=== PATIENT | female | born 1935 | race Caucasian/White ===

== ENCOUNTER → 2022-10-14 | Outpatient (CLI) | payer OTHER ==
[~2022-10-14] MED LIST: AMLO5 PO; ASPI325EC; ATOR10; DOCU100; EXEM25; FURO40; LOSHYD100 PO; METO5; Mobic15 MG PO; Norco 5-325 Ta1 EACH PO; PINDOLOL; PIRO10; POTCHL10ER
== END | disposition home or self-care (01) ==
LOC: LAB SHORT 11:50
DX: N18.30 Chronic kidney disease, stage 3 unspecified (principal); R44.1 Visual hallucinations
CPT/HCPCS: 87077; 87086; 87186

== ENCOUNTER 2023-04-09 06:23 | Observation (INO) | payer OTHER ==
[~2023-04-09] VITALS: Ht 149.9 cm; Wt 80.7 kg
[2023-04-09] VITALS (10 sets, daily range): BP systolic 131–153; BP diastolic 62–132
[~2023-04-09 06:23] MED LIST changes: +LOSA50 PO; -LOSHYD100 PO
[2023-04-09 07:19] LABS: Albumin, Blood 3.2 g/dL (3.4-5.0); Albumin/Globulin Ratio 0.9 (0.8-1.8); Bun/Creatinine Ratio 14.8 (12.0-20.0); Calcium, Blood 9.6 mg/dL (8.5-10.1); Creatinine, Blood 0.88 mg/dL (0.40-1.00); Globulin, Blood 3.6 g/dL (2.2-4.0); Magnesium, Blood 1.5 mg/dL (1.6-2.4); Potassium, Blood 4.3 mmol/L (3.5-5.5); Total Protein, Blood 6.8 g/dL (6.4-8.2)
[2023-04-09 07:20] LABS: BASOPHILS ABSOLUTE AUTO 0.05 K/mm3 (0.00-0.23); BASOPHILS PERCENT AUTO 1 % (0-2); EOSINOPHILS ABSOLUTE AUTO 0.16 K/mm3 (0.00-0.68); EOSINOPHILS PERCENT AUTO 4 % (0-6); Hematocrit 40.5 % (33.0-51.0); Hemoglobin 13.3 g/dL (11.5-16.0); IMMATURE GRAN ABSOLUTE AUTO 0.01 K/mm3 (0.00-0.10); IMMATURE GRAN PERCENT AUTO 0 % (0-1); LYMPHOCYTES ABSOLUTE AUTO 0.94 K/mm3 (0.84-5.20); LYMPHOCYTES PERCENT AUTO 24 % (21-46); MONOCYTES ABSOLUTE AUTO 0.46 K/mm3 (0.16-1.47); MONOCYTES PERCENT AUTO 12 % (4-13); Mean Corpuscular HGB 30.6 pg (26.0-34.0); Mean Corpuscular HGB Conc 32.8 g/dL (31.5-36.5); Mean Corpuscular Volume 93 fL (80-100); NEUTROPHILS ABSOLUTE AUTO 2.25 K/mm3 (1.96-9.15); NEUTROPHILS PERCENT AUTO 58 % (41-73); Platelet Count 248 K/mm3 (150-400); RDW Coefficient Variation 14.7 % (11.7-14.2); RDW Standard Deviation 51.4 fL (35.1-46.3); Red Blood Cell Count 4.34 M/mm3 (3.80-5.20); White Blood Cell Count 3.87 K/mm3 (4.00-11.30)
[2023-04-09 09:16] LABS: Influenza A, PCR NEGATIVE (NEGATIVE); Influenza B, PCR NEGATIVE (NEGATIVE); Resp Syncytial Virus, PCR NEGATIVE (NEGATIVE); SARS-Cov-2 (COVID-19) PCR, MMC NEGATIVE (NEGATIVE)
[2023-04-09] MEDS ORDERED: VITAMIN D5000 UNIT PO (11:41)
--- NOTE | 2023-04-09 17:25 | NUR ---
ADMIT NOTE/SHIFT SUMMARY PT ARRIVED TO PCU FROM ED VIA ED STRETCHER. PT VERBALIZED NEED TO USE RESTROOM UPON ARRIVING TO ROOM. PT ASSISTED TO BATHROOM BY 2 STAFF. PT C/O OF SOB. UNABLE TO VOID. PT AMBULATED TO BED W/ 2 STAFF ASSIST, FWW AND GB. PT A&O X4. SP02>90% ON RA. SOB W/ EXERTION BUT DOES NOT DESAT. TELEMETRY SHOWS AFIB, HR MOSTLY 100'S AT REST, 120'S W/ EXERTION. DENIES CP. NO BP ON R ARM D/T MASECTOMY. DENIES PAIN. AMBULATED TO BSC TO VOID, CALLS APPROPRIATELY. DAUGHTER CALLED FOR UPDATE. PT ORIENTED TO ROOM, CALL LIGHT. CALL LIGHT IN REACH.
[2023-04-10 03:05] VITALS: BP 140/114
[2023-04-10 03:30] LABS: BASOPHILS ABSOLUTE AUTO 0.04 K/mm3 (0.00-0.23); BASOPHILS PERCENT AUTO 1 % (0-2); EOSINOPHILS ABSOLUTE AUTO 0.12 K/mm3 (0.00-0.68); EOSINOPHILS PERCENT AUTO 3 % (0-6); Hematocrit 39.5 % (33.0-51.0); Hemoglobin 12.7 g/dL (11.5-16.0); IMMATURE GRAN ABSOLUTE AUTO 0.01 K/mm3 (0.00-0.10); IMMATURE GRAN PERCENT AUTO 0 % (0-1); LYMPHOCYTES ABSOLUTE AUTO 1.04 K/mm3 (0.84-5.20); LYMPHOCYTES PERCENT AUTO 26 % (21-46); MONOCYTES ABSOLUTE AUTO 0.63 K/mm3 (0.16-1.47); MONOCYTES PERCENT AUTO 16 % (4-13); Mean Corpuscular HGB 30.5 pg (26.0-34.0); Mean Corpuscular HGB Conc 32.2 g/dL (31.5-36.5); Mean Corpuscular Volume 95 fL (80-100); Mean Platelet Volume 10.7 fL (9.1-12.4); NEUTROPHILS ABSOLUTE AUTO 2.22 K/mm3 (1.96-9.15); NEUTROPHILS PERCENT AUTO 55 % (41-73); Platelet Count 193 K/mm3 (150-400); RDW Coefficient Variation 14.7 % (11.7-14.2); RDW Standard Deviation 51.2 fL (35.1-46.3); Red Blood Cell Count 4.16 M/mm3 (3.80-5.20); White Blood Cell Count 4.06 K/mm3 (4.00-11.30)
[2023-04-10 04:46] LABS: Albumin, Blood 2.8 g/dL (3.4-5.0); Albumin/Globulin Ratio 0.9 (0.8-1.8); Bilirubin, Total 0.7 mg/dL (0.1-1.0); Bun/Creatinine Ratio 16.7 (12.0-20.0); Calcium, Blood 9.5 mg/dL (8.5-10.1); Creatinine, Blood 0.9 mg/dL (0.40-1.00); Globulin, Blood 3.1 g/dL (2.2-4.0); Potassium, Blood 3.5 mmol/L (3.5-5.5); Total Protein, Blood 5.9 g/dL (6.4-8.2)
--- NOTE | 2023-04-10 05:52 | NUR ---
PT AOX4. REMAINS IN AFIB WITH A RATE OF 95-110. BP STABLE. ON ROOM AIR, DYSPNEA ON EXERTION.
[2023-04-10 07:39] VITALS: BP 162/115
[2023-04-10 11:18] VITALS: BP 139/110
[2023-04-10 14:09] VITALS: BP 138/105
--- NOTE | 2023-04-10 14:20 | NUR ---
UPDATE TELEMETRY NOTIFIED OF PT'S ST ELEVATION INCREASING. THIS SHIFT 2.8-5.4, SEE TELEMETRY. VSS. PT DENIES CP/PRESSURE. CALL PLACED TO MD OZUNA. MD OZUNA W/ ORDERS FOR TROPONIN AND REPEAT EKG.
--- NOTE | 2023-04-10 18:19 | NUR ---
SHIFT SUMMARY NO ACUTE CHANGES THIS SHIFT. PT A&OX4, VSS. TROPS NEGATIVE. ECHO DONE, AWAITING INTERPRETATION. PT UP TO BSC TO VOID. PT UP IN CHAIR TO EAT FOR MEALS. TALKED WITH FAMILY ON PHONE OFTEN. CALL LIGHT IN REACH.
[2023-04-10 19:46] VITALS: BP 138/109
[2023-04-10 23:08] VITALS: BP 127/95
[2023-04-11 03:24] VITALS: BP 139/103
[2023-04-11 04:14] LABS: BASOPHILS ABSOLUTE AUTO 0.03 K/mm3 (0.00-0.23); BASOPHILS PERCENT AUTO 1 % (0-2); EOSINOPHILS ABSOLUTE AUTO 0.16 K/mm3 (0.00-0.68); EOSINOPHILS PERCENT AUTO 4 % (0-6); Hematocrit 38.8 % (33.0-51.0); Hemoglobin 12.7 g/dL (11.5-16.0); IMMATURE GRAN ABSOLUTE AUTO 0.01 K/mm3 (0.00-0.10); IMMATURE GRAN PERCENT AUTO 0 % (0-1); LYMPHOCYTES PERCENT AUTO 24 % (21-46); MONOCYTES ABSOLUTE AUTO 0.63 K/mm3 (0.16-1.47); MONOCYTES PERCENT AUTO 15 % (4-13); Mean Corpuscular HGB 30.5 pg (26.0-34.0); Mean Corpuscular HGB Conc 32.7 g/dL (31.5-36.5); Mean Corpuscular Volume 93 fL (80-100); Mean Platelet Volume 10.9 fL (9.1-12.4); NEUTROPHILS ABSOLUTE AUTO 2.27 K/mm3 (1.96-9.15); NEUTROPHILS PERCENT AUTO 55 % (41-73); Platelet Count 198 K/mm3 (150-400); RDW Coefficient Variation 14.7 % (11.7-14.2); RDW Standard Deviation 50.7 fL (35.1-46.3); Red Blood Cell Count 4.17 M/mm3 (3.80-5.20)
[2023-04-11 04:42] LABS: Magnesium, Blood 1.6 mg/dL (1.6-2.4)
[2023-04-11 04:43] LABS: Bun/Creatinine Ratio 16.6 (12.0-20.0); Calcium, Blood 9.1 mg/dL (8.5-10.1); Creatinine, Blood 0.84 mg/dL (0.40-1.00); Potassium, Blood 3.6 mmol/L (3.5-5.5)
--- NOTE | 2023-04-11 05:52 | NUR ---
PT AOX4. AFIB WITH A RATE OF 95-110. ON ROOM AIR BUT REPORTS DYSPNEA WITH EXERTION. ABLE TO AMBULATE TO BSC IN ROOM.
[2023-04-11 07:21] VITALS: BP 137/85
--- NOTE | 2023-04-11 12:22 | NUR ---
Pt. is awake and sitting up in a recliner when she welcomes my visit. Pt. 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 While Pt. declines prayer, we had a pleasant and enjoyable conversation. Pt. verbalized that she would love to have a Eucharistic volunteer visit, if she is still in the hospital tomorrow. Pt. verbalized gratitude for the visit.
[2023-04-11 12:36] VITALS: BP 126/64
[2023-04-11] MEDS ORDERED: METO100ER PO (16:02)
[2023-04-11] MEDS ORDERED: FURO20 PO (16:02)
[2023-04-11] MEDS ORDERED: KLOR-CON 1010 ME3 PO (16:03)
[2023-04-11 16:38] VITALS: BP 144/118
--- NOTE | 2023-04-11 17:25 | NUR ---
UPDATE/DISCHARGE NOTE PT PROVIDED WITH DISCHARGE INSTRUCTIONS PER MD. MEDS FAXED TO PREFERRED PHARMACY. PHARMACY TO DELIVER MEDS TO PT'S HOME THIS EVENING. PT'S DAUGHTER SET UP TRANSPORTATION FOR PT TO HOME. IV REMOVED. TELE REMOVED. PT BROUGHT WITH ALL BELONGINGS TO [facility] WITH PLASTICS REPAIRER.AFTER PT DEPARTURE THIS RN RECOGNIZED NO ANTICOAGULATION WAS ORDERED AT DISCHARGE. ATTEMPTED TO NOTIFY . TO BE NOTIFIED BY [employer] MACHINE OPERATOR.
== END 2023-04-11 16:46 | disposition home or self-care (01) ==
LOC: ER 06:23 → MEDS 06:24 → PCU 11:25
PROVIDERS: Emergency Medicine; ADMIT Internal Medicine
DX: I48.91 Unspecified atrial fibrillation (principal); I12.9 Hypertensive chronic kidney disease with stage 1 through stage 4 chronic kidney disease, or unspecified chronic kidney disease; E78.5 Hyperlipidemia, unspecified; E66.9 Obesity, unspecified; N18.30 Chronic kidney disease, stage 3 unspecified; Z88.0 Allergy status to penicillin; Z20.822 Contact with and (suspected) exposure to COVID-19; Z68.36 Body mass index [BMI] 36.0-36.9, adult; E87.70 Fluid overload, unspecified
CPT/HCPCS: 0241U; 36415; 71045; 80048; 80053; 83735; 83880; 84443; 84484; 85025; 93005; 93010; 96365; 96366; 96372; 96372-59; 96375; 96376; 99285-25; A9270; C8929; G0378; J1650; J1940; J3475; Q9957

== ENCOUNTER → 2023-05-19 | Outpatient (CLI) | payer OTHER ==
[~2023-05-19] MED LIST changes: +FURO20 PO; +KLOR-CON 1010 ME3 PO; +METO100ER PO; +VITAMIN D5000 UNIT PO
== END ==
LOC: LAB SHORT 13:09 → LAB 13:09
DX: C44.622 Squamous cell carcinoma of skin of right upper limb, including shoulder (principal); L85.8 Other specified epidermal thickening
CPT/HCPCS: 88305

== ENCOUNTER → 2023-06-01 | Outpatient (CLI) | payer OTHER ==
[2023-06-01 12:54] LABS: BASOPHILS ABSOLUTE AUTO 0.04 K/mm3 (0.00-0.23); BASOPHILS PERCENT AUTO 1 % (0-2); EOSINOPHILS ABSOLUTE AUTO 0.05 K/mm3 (0.00-0.68); EOSINOPHILS PERCENT AUTO 1 % (0-6); Hematocrit 45.8 % (33.0-51.0); IMMATURE GRAN ABSOLUTE AUTO 0.01 K/mm3 (0.00-0.10); IMMATURE GRAN PERCENT AUTO 0 % (0-1); LYMPHOCYTES ABSOLUTE AUTO 1.21 K/mm3 (0.84-5.20); LYMPHOCYTES PERCENT AUTO 30 % (21-46); MONOCYTES PERCENT AUTO 10 % (4-13); Mean Corpuscular HGB 30.7 pg (26.0-34.0); Mean Corpuscular HGB Conc 32.8 g/dL (31.5-36.5); Mean Corpuscular Volume 94 fL (80-100); Mean Platelet Volume 10.4 fL (9.1-12.4); NEUTROPHILS ABSOLUTE AUTO 2.34 K/mm3 (1.96-9.15); NEUTROPHILS PERCENT AUTO 58 % (41-73); Platelet Count 181 K/mm3 (150-400); RDW Coefficient Variation 15.2 % (11.7-14.2); RDW Standard Deviation 52.4 fL (35.1-46.3); Red Blood Cell Count 4.88 M/mm3 (3.80-5.20); White Blood Cell Count 4.05 K/mm3 (4.00-11.30)
[2023-06-01 13:11] LABS: Albumin, Blood 3.6 g/dL (3.4-5.0); Bilirubin, Total 0.8 mg/dL (0.1-1.0); Bun/Creatinine Ratio 18.5 (12.0-20.0); Calcium, Blood 10.2 mg/dL (8.5-10.1); Creatinine, Blood 1.08 mg/dL (0.40-1.00); Globulin, Blood 3.6 g/dL (2.2-4.0); Potassium, Blood 4.2 mmol/L (3.5-5.5); Total Protein, Blood 7.2 g/dL (6.4-8.2)
== END | disposition home or self-care (01) ==
LOC: LAB 12:49 → LAB SHORT 12:49
PROVIDERS: Physician Assistant Medical
DX: R30.0 Dysuria (principal); R00.0 Tachycardia, unspecified; R94.31 Abnormal electrocardiogram [ECG] [EKG]
CPT/HCPCS: 80053; 84484; 85025; 87086

== ENCOUNTER 2023-06-23 08:48 | Emergency (ER) | payer OTHER ==
[~2023-06-23] VITALS: Ht 162.6 cm; Wt 113.4 kg
[2023-06-23 09:48] LABS: Source, Urine Straight Cath
[2023-06-23 09:53] LABS: Appearance, Urine Clear (Clear); Bilirubin, Urine Neg (Neg); Blood, Urine Neg (Neg); Color, Urine Yellow (P-Yellow); Glucose Qualitative, Urine Neg (Neg); Ketones, Urine 2+ (Neg); Leukocyte Esterase, Urine 1+ (Neg); Nitrite, Urine Neg (Neg); Protein, Urine 2+ (Neg); Urobilinogen, Urine NORM (Normal)
[2023-06-23 10:01] LABS: BASOPHILS ABSOLUTE AUTO 0.03 K/mm3 (0.00-0.23); BASOPHILS PERCENT AUTO 1 % (0-2); EOSINOPHILS ABSOLUTE AUTO 0.05 K/mm3 (0.00-0.68); EOSINOPHILS PERCENT AUTO 2 % (0-6); Hematocrit 42.2 % (33.0-51.0); Hemoglobin 13.8 g/dL (11.5-16.0); IMMATURE GRAN ABSOLUTE AUTO 0.01 K/mm3 (0.00-0.10); IMMATURE GRAN PERCENT AUTO 0 % (0-1); LYMPHOCYTES ABSOLUTE AUTO 0.74 K/mm3 (0.84-5.20); LYMPHOCYTES PERCENT AUTO 22 % (21-46); MONOCYTES ABSOLUTE AUTO 0.47 K/mm3 (0.16-1.47); MONOCYTES PERCENT AUTO 14 % (4-13); Mean Corpuscular HGB 30.5 pg (26.0-34.0); Mean Corpuscular HGB Conc 32.7 g/dL (31.5-36.5); Mean Corpuscular Volume 93 fL (80-100); Mean Platelet Volume 10.8 fL (9.1-12.4); NEUTROPHILS ABSOLUTE AUTO 2.11 K/mm3 (1.96-9.15); NEUTROPHILS PERCENT AUTO 62 % (41-73); Platelet Count 154 K/mm3 (150-400); RDW Coefficient Variation 16.4 % (11.7-14.2); RDW Standard Deviation 55.6 fL (35.1-46.3); Red Blood Cell Count 4.52 M/mm3 (3.80-5.20); White Blood Cell Count 3.41 K/mm3 (4.00-11.30)
[2023-06-23 10:03] LABS: Base Excess Venous 2.5 mmol/L; Bicarbonate Venous 24.7 mmol/L (24.0-30.0); PCO2 Venous 57.9 mmHg (38-42); pH Blood Venous 7.31 (7.34-7.37)
[2023-06-23 10:14] LABS: Amorphous Mod (0-Heavy); Bacteria Few /hpf; Mucus Mod (0-Heavy); Red Blood Cells, Urine 0-2 /hpf (0-2); Squamous Epithelial Cells Rare /hpf (Few); Transitional Epithelial Cells Few /hpf (0-Rare)
[2023-06-23 10:22] LABS: Albumin, Blood 3.1 g/dL (3.4-5.0); Bun/Creatinine Ratio 38.9 (12.0-20.0); Calcium, Blood 9.6 mg/dL (8.5-10.1); Creatinine, Blood 0.85 mg/dL (0.40-1.00); Globulin, Blood 3.2 g/dL (2.2-4.0); Magnesium, Blood 1.4 mg/dL (1.6-2.4); Potassium, Blood 3.6 mmol/L (3.5-5.5); Total Protein, Blood 6.3 g/dL (6.4-8.2)
[2023-06-23 11:17] LABS: Base Excess Venous 3.1 mmol/L; Bicarbonate Venous 25.3 mmol/L (24.0-30.0); pH Blood Venous 7.34 (7.34-7.37)
[2023-06-23 14:00] VITALS: BP 127/86
== END 2023-06-23 16:38 | disposition home or self-care (01) ==
LOC: ER 08:48
PROVIDERS: Student in an Organized Health Care Education/Training Program
DX: R41.0 Disorientation, unspecified (principal); W07.XXXA Fall from chair, initial encounter; Z88.0 Allergy status to penicillin; Z79.899 Other long term (current) drug therapy; I50.9 Heart failure, unspecified; E78.5 Hyperlipidemia, unspecified; Z85.3 Personal history of malignant neoplasm of breast; I13.0 Hypertensive heart and chronic kidney disease with heart failure and stage 1 through stage 4 chronic kidney disease, or unspecified chronic kidney disease; N18.30 Chronic kidney disease, stage 3 unspecified
CPT/HCPCS: 51701; 70450; 80053; 81001; 82140; 82803; 83735; 85025; 93005; 93010; 96365-59; 96366-59; 99285-25; A9270; J3475